=== PATIENT | male | born 1960 | race African-American/Black ===

== ENCOUNTER 2024-05-22 11:59 | Emergency (ER) | payer OTHER ==
[~2024-05-22] VITALS: Ht 177.8 cm; Wt 68.9 kg
[2024-05-22 12:03] VITALS: TEMP 98.2; O2SAT 99
[2024-05-22 15:02] VITALS: BP 171/84
== END 2024-05-22 15:03 | disposition home or self-care (01) ==
LOC: M ED 11:59
DX: S20.222A Contusion of left back wall of thorax, initial encounter (principal); W01.0XXA Fall on same level from slipping, tripping and stumbling without subsequent striking against object, initial encounter; Y92.015 Private garage of single-family (private) house as the place of occurrence of the external cause; Y93.89 Activity, other specified; Y99.9 Unspecified external cause status; E11.9 Type 2 diabetes mellitus without complications; I10 Essential (primary) hypertension; E78.00 Pure hypercholesterolemia, unspecified; I48.91 Unspecified atrial fibrillation; Z95.0 Presence of cardiac pacemaker; Z88.0 Allergy status to penicillin; M50.30 Other cervical disc degeneration, unspecified cervical region; M46.92 Unspecified inflammatory spondylopathy, cervical region